=== PATIENT | female | born 1950 | race Caucasian/White ===

== ENCOUNTER 2024-10-17 12:44 | Emergency (ER) | payer MEDICARE, OTHER, SELFPAY ==
[2024-10-17 12:44] VITALS: BMI 17.7
[2024-10-17 12:51] VITALS: BP 116/77
[2024-10-17 13:37] LABS: % Basophils 0.6 % (0-2); % Eosinophils 0.6 % (0-6); % Immature Granulocytes 0.5 % (0-0.5); % Lymphocytes 8.6 % (20.5-51.1); % Monocytes 9.7 % (1.7-9.3); Absolute Lymphocytes 0.5 10^3/uL (1.2-3.4); Absolute Monocytes 0.6 10^3/uL (0.1-0.6); Hematocrit 38.9 % (37.0-47.0); Hemoglobin 12.4 g/dL (12.0-16.0); Mean Corp Hgb Conc. 31.9 g/dL (33.0-37.0); Mean Corpuscular Hgb 31.2 pg (27.0-31.0); Mean Platelet Volume 10.4 fL (7.4-10.4); Nucleated Red Blood Cells % 0 %; Platelet Count 132 10^3/uL (130-400); Red Blood Cell Count 3.97 10^6/uL (4.20-5.40); White Blood Cell Count 6.3 10^3/uL (4.8-10.8)
[2024-10-17 13:55] LABS: ALT (SGPT) 18 U/L (0-35); AST (SGOT) 23 U/L (14-36); Albumin 3.9 g/dl (3.5-5.0); Alkaline Phosphatase 74 U/L (38-126); Blood Urea Nitrogen 16 mg/dl (7-17); Calcium 9.1 mg/dl (8.4-10.2); Carbon Dioxide 29 mmol/L (22-30); Chloride 99 mmol/L (98-107); Glucose 134 mg/dl (70-99); Lipase 69 U/L (23-300); Potassium 4.7 mmol/L (3.5-5.1); Sodium 134 mmol/L (135-145); Total Bilirubin 1.5 mg/dl (0.2-1.3); Total Protein 6.9 g/dl (6.3-8.2); eGFR > 60.00
[2024-10-17 14:06] LABS: Troponin I < 0.012 ng/ml
[2024-10-17 15:15] VITALS: BP 113/74
[2024-10-17 16:00] VITALS: BP 112/73
[2024-10-17 16:48] LABS: Troponin I < 0.012 ng/ml
--- NOTE | 2024-10-17 17:46 | ED.GENMED ---
History of Present Illness
General
Chief Complaint: Chest Pain
Source: patient
Exam Limitations: none
Time Seen by Provider: 10/17/24 15:40
History of Present Illness
History of Present Illness:
74-year-old female with history of paroxysmal atrial fibrillation on Eliquis presents for evaluation of shortness of breath and chest discomfort onset last evening. It was worse when she was laying flat. She denies any leg swelling or weight gain.
She has a machine shop supervisor at her primary residence in [place] but does not see one here. She is prescribed Lasix to take 20 mg as needed however she has not used it in quite some time. No fevers. No new cough. Since waiting in the waiting room she
states her symptoms have significantly improved. No other complaints at this time
Phy Exam
Physical Exam
Physical Exam:
General: Well-appearing female no acute respiratory distress
HEENT: Normocephalic atraumatic
Heart: Regular rate and rhythm
Lungs: Clear no wheeze
Extremities: Mild edema bilateral lower extremities skin is warm no rash
Scores
Heart Score for Chest Pain Patients
STEMI patient?: No
History: Slightly or Non-Suspicious
ECG: Normal
Age: >/= 65 years
Risk Factors: No Risk Factors
Troponin: </= Normal Limit
Heart Score for Chest Pain Patients: 2
Heart Score Risk: 2.5% MACE over next 6 weeks
Course
Orders/Labs/Results
Orders:
Orders
10/17/24 12:44
Electrocardiogram (*1) Urgent
Reason for Study: Chest Pain
EKG- Treatment ONCE
10/17/24 13:21
Complete Blood Count/With Diff Urgent
Comprehensive Metabolic Panel Urgent
Lipase Urgent
Troponin I Urgent
10/17/24 15:53
CR Chest - 2 Views Urgent
Comment:
Reason For Exam: chest pain, sob
10/17/24 15:58
Cardiac Monitoring- Treatment ONCE
10/17/24 16:11
NT-proBNP Urgent
Comment: ADD ON
Troponin I Urgent
10/17/24 17:38
Add On- LAB Urgent
Tests Added?: bnp
Abnormal Lab Results
10/17/24
13:21
RBC 3.97 L 10^6/uL
(4.20-5.40)
MCH 31.2 H pg
(27.0-31.0)
MCHC 31.9 L g/dL
(33.0-37.0)
Absolute Lymphs (auto) 0.5 L 10^3/uL
(1.2-3.4)
Neutrophils % 80.0 H %
(42.2-75.2)
Lymphocytes % 8.6 L %
(20.5-51.1)
Monocytes % 9.7 H %
(1.7-9.3)
Sodium 134 L mmol/L
(135-145)
Glucose 134 H mg/dl
(70-99)
Total Bilirubin 1.5 H mg/dl
(0.2-1.3)
10/17/24 13:21
10/17/24 13:21
Vital Signs
Initial and Last Documented VS:
Initial Vital Signs
Temp Pulse Resp BP Pulse Ox
97.9 F 86 18 116/77 98
10/17/24 12:51 10/17/24 12:51 10/17/24 12:51 10/17/24 12:51 10/17/24 12:51
Last Documented Vital Signs
Temp Pulse Resp BP Pulse Ox
97.9 F 76 16 112/73 98
10/17/24 12:51 10/17/24 16:00 10/17/24 16:00 10/17/24 16:00 10/17/24 16:00
MDM/Problems Addressed
Differential Diagnosis Includes:
Shortness of breath. Consider URI versus ACS versus CHF
Troponin x 2 undetectable. Chest x-ray performed which shows small bilateral pleural effusions and pulmonary edema. Other diagnostic possibilities on x-ray could be pneumonia however clinically patient does not have a fever is not coughing I do
not suspect pneumonia given her clinical presentation. She is instructed by her machine shop supervisor to take 20 mg of Lasix as needed which she has not done so in a while. She is in no respiratory distress she is not hypoxic. No indication for admission
at this time but would recommend taking her 20 mg of Lasix daily for the next 5 days and have her follow-up with cardiology. Patient and anxious to go home. Return precautions were given
*Critical Care Note
Total Time (30-74mins, 75-104mins- exclusive of procedures): Not Applicable
ED Attending Note
-
Portions of this chart may have been created with voice recognition software.� Occasional wrong word or��sound alike� substitutions may have occurred due to the inherent limitations of voice recognition software.
Discharge Plan
Departure
Patient Disposition: Home (Routine Discharge)
Date of Disposition: 10/17/24
Time of Disposition: 17:51
Patient with high blood pressure during this ER visit?: No
Discharge Problem:
Acute dyspnea
Instructions: *[facility] Heart Failure Instructions
Referrals:
Diogo Mitchell MD [Family Provider] -
Activity Restrictions/Additional Instructions:
Please take Lasix 20 mg daily for the next 5 days. Please return here for increasing shortness of breath chest discomfort or other worrisome findings. You were referred to a cardiology office for follow-up. They should call and discuss follow-up
options.
Interventions
Interventions:
*Risk Screen - Suicide Last Done: 10/17/24 12:51
*General Assessment Last Done: 10/17/24 12:51
*Neglect/Abuse Screening Last Done: 10/17/24 12:51
ED- Fall Risk Assessment Last Done: 10/17/24 15:52
*ED COVID-19 Vaccine History Last Done: 10/17/24 12:51
ED- Cardiac Assessment Last Done: 10/17/24 15:52
Discharge Date and Time
Print Language: [id number]
[2024-10-17 17:58] VITALS: BP 133/67
[2024-10-17 18:25] LABS: NT-proBNP 6540 pg/ml
== END 2024-10-17 17:58 | disposition home or self-care (01) ==
LOC: EMR 12:44
PROVIDERS: Emergency Medicine; Physician Assistant; EMERGENCY PHYSICIAN Emergency Medicine; FAMILY PHYSICIAN General Practice
DX: R06.00 Dyspnea, unspecified (principal); I48.91 Unspecified atrial fibrillation; Z79.01 Long term (current) use of anticoagulants; J90 Pleural effusion, not elsewhere classified; J81.1 Chronic pulmonary edema
CPT/HCPCS: 99283; 71046; 80053; 83690; 83880; 84484; 85025; 93005